=== PATIENT | male | born 1950 | race African-American/Black ===

== ENCOUNTER 2019-07-27 22:44 | Emergency (ER) | payer OTHER, MEDICARE ==
[~2019-07-27] VITALS: Ht 180.3 cm; Wt 78.5 kg
[~2019-07-27 22:44] MED LIST: AMLO5TAB10 PO; SITA1TAB7 PO; VALS1TAB22 PO
[2019-07-27] MEDS ORDERED: methylPREDNISolone SOD SUCC PF 125 MG/2 ML VIAL. IV ONE (23:00)
[2019-07-27] MEDS ORDERED: IPRATRPIUM/ALBUTEROL 0.5/2.5MG 3 ML NEBU. NEB ONE (23:00)
[2019-07-27 23:04] LABS: BASO # 0.1 x10^3/uL (0.0-0.2); BASO % 1 % (0-3); EOS # 0.1 x10^3/uL (0.0-0.7); EOS % 1 % (0-3); HEMATOCRIT 43.5 % (39.0-53.0); HEMOGLOBIN 14.4 g/dL (13.0-17.5); LYMPH % 17 % (24-48); MEAN CORPUSCULAR HEMOGLOBIN 27 pg (25-35); MEAN CORPUSCULAR HGB CONC 33 g/dL (31-37); MEAN CORPUSCULAR VOLUME 81 fL (79-100); MONO # 1.1 x10^3/uL (0.0-1.1); MONO % 9 % (0-9); NEUT # 8.5 x10^3/uL (1.8-7.7); NEUT % 72 % (31-73); PLATELET COUNT 196 x10^3/uL (140-400); RED BLOOD COUNT 5.36 x10^6/uL (4.30-5.70); RED CELL DISTRIBUTION WIDTH 15.9 % (11.5-14.5); WHITE BLOOD COUNT 11.7 x10^3/uL (4.0-11.0)
--- NOTE | 2019-07-27 23:05 | PHYS DOC ---
Past Medical History Past Medical History: Diabetes-Type II, Hypertension, Stroke Past Surgical History: No Surgical History Alcohol Use: None Drug Use: None Adult General Chief Complaint Chief Complaint: SHORTNESS OF BREATH HPI HPI 69-year-old male with a family history of COPD presents to the emergency Department with complaints of shortness of breath. 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 Nose worsening shortness of breath as discussed above. He denies any nausea, vomiting, fever. Cough is present however nonproductive. Initial [facility] emergency department revealed saturations 80s on room air. Patient is only on Spiriva. Patient denies any abdominal discomfort, headache, neck pain or visual changes. Exertion, talking makes his shortness of breath worse. He makes his shortness of breath better. Review of Systems Review of Systems Constitutional: Denies fever or chills [] Respiratory: Nonproductive cough, shortness of breath Cardiovascular: No additional information not addressed in HPI [] GI: Denies abdominal pain, nausea, vomiting, bloody stools or diarrhea [] Musculoskeletal: Denies back pain or joint pain [] Integument: Denies rash or skin lesions [] Neurologic: Denies headache, focal weakness or sensory changes [] All other systems were reviewed and found to be within normal limits, except as documented in this note. Current Medications Current Medications Current Medications Medications (Trade) Dose Ordered Sig/Katie Start Time Stop Time Status Last Admin Dose Admin Albuterol/ Ipratropium (Duoneb) 3 ml 1X ONCE 07/27/19 23:00 07/27/19 23:01 DC 07/27/19 23:02 3 ML Methylprednisolone Sodium Succinate (SOLU-Medrol 125MG VIAL) 125 mg 1X ONCE 07/27/19 23:00 07/27/19 23:01 DC 07/27/19 23:20 125 MG Allergies Allergies Allergies Coded Allergies Type Severity Reaction Last Updated Verified No Known Drug Allergies 06/15/17 No Physical Exam Physical Exam Constitutional: Well developed, well nourished, mild distress secondary to shortness of breath, non-toxic appearance. [] HENT: Normocephalic, atraumatic, bilateral external ears normal, oropharynx moist, no oral exudates, nose normal. [] Eyes: PERRLA, EOMI, conjunctiva normal, no discharge. [] Neck: No stridor Cardiovascular:Heart rate regular rhythm, no murmur [] Lungs & Thorax: Decreased air movement, expiratory wheeze appreciated Abdomen: Bowel sounds normal, soft, no tenderness, no masses, no pulsatile masses. [] Skin: Warm, dry, no erythema, no rash. [] Extremities: No tenderness, no cyanosis, no edema. [] Neurologic: Alert and oriented X 3, no focal deficits noted. [] Psychologic: Affect normal, judgement normal, mood normal. [] Current Patient Data Vital Signs Vital Signs Date Time Temp Pulse Resp B/P (MAP) Pulse Ox O2 Delivery O2 Flow Rate FiO2 07/27/19 23:03 99 Nasal Cannula 3.0 07/27/19 22:45 97.5 101 26 201/117 (145) 97.5 Lab Values Laboratory Tests Test 07/27/19 22:55 White Blood Count 11.7 x10^3/uL (4.0-11.0) H Red Blood Count 5.36 x10^6/uL (4.30-5.70) Hemoglobin 14.4 g/dL (13.0-17.5) Hematocrit 43.5 % (39.0-53.0) Mean Corpuscular Volume 81 fL (79-100) Mean Corpuscular Hemoglobin 27 pg (25-35) Mean Corpuscular Hemoglobin Concent 33 g/dL (31-37) Red Cell Distribution Width 15.9 % (11.5-14.5) H Platelet Count 196 x10^3/uL (140-400) Neutrophils (%) (Auto) 72 % (31-73) Lymphocytes (%) (Auto) 17 % (24-48) L Monocytes (%) (Auto) 9 % (0-9) Eosinophils (%) (Auto) 1 % (0-3) Basophils (%) (Auto) 1 % (0-3) Neutrophils # (Auto) 8.5 x10^3/uL (1.8-7.7) H Lymphocytes # (Auto) 2.0 x10^3/uL (1.0-4.8) Monocytes # (Auto) 1.1 x10^3/uL (0.0-1.1) Eosinophils # (Auto) 0.1 x10^3/uL (0.0-0.7) Basophils # (Auto) 0.1 x10^3/uL (0.0-0.2) D-Dimer (Evelyn) 0.33 ug/mlFEU (0.00-0.50) Sodium Level 141 mmol/L (136-145) Potassium Level 3.9 mmol/L (3.5-5.1) Chloride Level 100 mmol/L (98-107) Carbon Dioxide Level 31 mmol/L (21-32) Anion Gap 10 (6-14) Blood Urea Nitrogen 16 mg/dL (8-26) Creatinine 0.9 mg/dL (0.7-1.3) Estimated GFR (Cockcroft-Gault) 101.2 BUN/Creatinine Ratio 18 (6-20) Glucose Level 113 mg/dL (70-99) H Calcium Level 9.8 mg/dL (8.5-10.1) Total Bilirubin 0.3 mg/dL (0.2-1.0) Aspartate Amino Transferase (AST) 13 U/L (15-37) L Alanine Aminotransferase (ALT) 11 U/L (16-63) L Alkaline Phosphatase 103 U/L (46-116) Troponin I Quantitative < 0.017 ng/mL (0.000-0.055) CB-Svy-G-Type Natriuretic Peptide 56 pg/mL (0-124) Total Protein 8.9 g/dL (6.4-8.2) H Albumin 4.2 g/dL (3.4-5.0) Albumin/Globulin Ratio 0.9 (1.0-1.7) L Laboratory Tests 07/27/19 22:55 Laboratory Tests 07/27/19 22:55 EKG EKG EKG reviewed, heart rate 97, irregular rhythm. There are P waves present. No evidence of acute ST elevation.[] Interpretation Time: Interpretation time 2304 Radiology/Procedures Radiology/Procedures [facility] [address] [place] [address] IMAGING REPORT Signed PATIENT: APOLINAR AVILEZ ACCOUNT: [id number] : 1950 LOCATION: ER AGE: 69 SEX: M EXAM STATUS: REG ER ORD. PHYSICIAN: LARS VICTOR MD REASON: Shortness of breath PROCEDURE: PORTABLE CHEST 1V Indication:Shortness of breath. TECHNIQUE:Portable AP chest X-ray COMPARISON: Study from 06/15/2017 FINDINGS: Heart is normal in size. Mild prominence of interstitium also seen on previous exam. No lung consolidation. No pneumothorax or pleural effusion. Visualized bony thorax within normal limits. IMPRESSION: Stable prominence of interstitium when compared to previous exam from 2017. Superimposed atypical/viral infection not ruled out. Electronically signed by: Austin Shah DO (07/27/2019 11:24 PM) [facility] DICTATED and SIGNED BY: AUSTIN SHAH DO DATE: 07/27/19 8450 [] Course & Med Decision Making Course & Med Decision Making Pertinent Labs and Imaging studies reviewed. (See chart for details) []69-year-old male with a family history of COPD presents to the emergency Department with complaints of shortness of breath. 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 Nose worsening shortness of breath as discussed above. He denies any nausea, vomiting, fever. Cough is present however nonproductive. Initial evaluation emergency department revealed saturations 80s on room air. Patient is only on Spiriva. Patient denies any abdominal discomfort, headache, neck pain or visual changes. Exertion, talking makes his shortness of breath worse. He makes his shortness of breath better. Labs and imaging reviewed, white blood cell count 11.7. Chest x-ray reveals no evidence of acute cardio/pulmonary process, no acute consolidation appreciated on x-ray. He does have mild elevation of the d-dimer however within age-adjusted limits. Troponin within normal limits. BNP normal. Patient is currently on room air, saturations 95-97%. Patient would like to be discharged, will plan for ambulatory oximetry, his saturations remained stable, no significant shortness of breath will plan for discharge. Recommend continued Spiriva as scheduled, will add rescue inhaler. Ambulatory oximetry 92% Dragon Disclaimer Dragon Disclaimer This electronic medical record was generated, in whole or in part, using a voice recognition dictation system. Departure Departure Impression: Primary Impression: COPD exacerbation Additional Impression: Hypoxia Disposition: 01 HOME, SELF-CARE Condition: IMPROVED Referrals: ALEX LUCERO MD (PCP) Patient Instructions: Chronic Obstructive Pulmonary Disease Exacerbation, [id number] Additional Instructions: Recommend follow up with PCP 3 - 5 days Return to the ER with worsening symptoms, intractable pain, fever, altered mental status Tylenol/Motrin as needed for pain Take abx as directed Rescue inhaler rx provided. Scripts Methylprednisolone (MEDROL) 4 Mg Tab.ds.pk 1 PKG PO UD for inflammation, #1 PKG Prov: LARS VICTOR MD 07/28/19 Albuterol Sulfate (VENTOLIN HFA INHALER) 18 Gm Hfa.aer.ad 2 PUFF INH Q4HRS for FOR ASTHMA, #1 INHALER 2 Refills Prov: LARS VICTOR MD 07/28/19 Levofloxacin (LEVAQUIN) 750 Mg Tablet 1 TAB PO DAILY, #7 TAB Prov: LARS VICTOR MD 07/28/19 Problem Qualifiers LARS VICTOR MD Jul 27, 2019 23:05
[2019-07-27 23:13] LABS: CALCIUM 9.8 mg/dL (8.5-10.1); CREATININE 0.9 mg/dL (0.7-1.3); GFR 101.2; POTASSIUM 3.9 mmol/L (3.5-5.1)
[2019-07-27 23:19] LABS: ALBUMIN 4.2 g/dL (3.4-5.0); ALBUMIN/GLOBULIN RATIO 0.9 (1.0-1.7); TOTAL BILIRUBIN 0.3 mg/dL (0.2-1.0); TOTAL PROTEIN 8.9 g/dL (6.4-8.2)
--- NOTE | 2019-07-27 23:27 | RAD ---
Indication:Shortness of breath. TECHNIQUE:Portable AP chest X-ray COMPARISON: Study from 06/15/2017 FINDINGS: Heart is normal in size. Mild prominence of interstitium also seen on previous exam. No lung consolidation. No pneumothorax or pleural effusion. Visualized bony thorax within normal limits. IMPRESSION: Stable prominence of interstitium when compared to previous exam from 2017. Superimposed atypical/viral infection not ruled out. Electronically signed by: Austin Shah DO (07/27/2019 11:24 PM) [facility]
[2019-07-28 00:30] VITALS: BP 174/91
[2019-07-28] MEDS ORDERED: LEVO750T31 PO (00:57)
[2019-07-28] MEDS ORDERED: VENTOLIN HFA18 GM INH (00:57)
[2019-07-28] MEDS ORDERED: METH4TAB2 PO (00:58)
--- NOTE | 2019-07-28 07:37 | EKG ---
[facility] [address] [place] [address] Test Date: 2019-07-27 Test Time: 22:58:27 Pat Name: APOLINAR AVILEZ Department: Room: Gender: M Announcer: : 1950 Requested By: LARS VICTOR Order Number: [id number] Reading MD: Measurements Intervals [place] Rate: 97 P: [place]: QRS: 23 QRSD: 70 T: 74 QT: 348 QTc: 446 Interpretive Statements IRREGULAR RHYTHM, NO P-WAVE FOUND T ABNORMALITY IN HIGH LATERAL LEADS ABNORMAL ECG RI6.01 No previous ECG available for comparison
== END 2019-07-28 01:05 | disposition home or self-care (01) ==
LOC: ER 22:44
DX: J44.1 Chronic obstructive pulmonary disease with (acute) exacerbation (principal); R09.02 Hypoxemia; I10 Essential (primary) hypertension; E11.9 Type 2 diabetes mellitus without complications; Z86.73 Personal history of transient ischemic attack (TIA), and cerebral infarction without residual deficits
CPT/HCPCS: 71045; 80053; 83880; 84484; 85025; 85379; 93005; 94640; 96374; 99285; J2930; J7620

== ENCOUNTER → 2019-08-28 | Outpatient (CLI) | payer OTHER, MEDICARE ==
[~2019-08-28] MED LIST changes: +LEVO750T31 PO; +METH4TAB2 PO; +REGADENOSON 0.4 MG/5 ML DISP.SYRIN. IV ONE; +VENTOLIN HFA18 GM INH
--- NOTE | 2019-08-28 10:06 | CARD ---
MR#: [id number] Date of Study: 08/28/2019 Ordering Physician: BELKIS GUERRERO, Referring Physician: BELKIS GUERRERO Tech: Shirlene Cesar RDCS APPROVED REPORT EXAM: Two-dimensional and M-mode echocardiogram with Doppler and color Doppler. Other Information Quality : AverageHR: 80bpm Rhythm : Other INDICATION Chest Pain 2D DIMENSIONS RVDd3.0 (2.9-3.5cm)Left Atrium(2D)3.7 (1.6-4.0cm) IVSd1.1 (0.7-1.1cm)Aortic Root(2D)3.1 (2.0-3.7cm) LVDd4.9 (3.9-5.9cm)LVOT Diameter1.8 (1.8-2.4cm) PWd1.1 (0.7-1.1cm)IVSs1.5 (0.8-1.2cm) LVDs2.7 (2.5-4.0cm)FS (%) 44.3 % PWs1.7 (0.8-1.2cm)SV85.9 ml LVEF(%)70.0 (>50%) M-Mode DIMENSIONS Left Atrium(MM)3.20 (2.5-4.0cm)Aortic Root3.10 (2.2-3.7cm) Aortic Valve AoV Peak Ashish.114.3cm/sAoV VTI23.0cm AO Peak GR.5.2mmHgLVOT Peak Ashish.87.0cm/s LVOT VTI 17.51cmAO Mean GR.3mmHg SHANE (VMAX)1.39xf0DUE (VTI)1.99cm2 Mitral Valve MV E Tzojyjfm14.4cm/sMV DECEL [id number] MV A Wwmicihg71.3cm/sMV FZG06dc E/A Ratio0.7MVA (PHT)2.93cm2 TDI E/Medial E'7.9 Pulmonary Valve PV Peak Cjjbmrfo97.6cm/sPV Peak Grad.2mmHg LEFT VENTRICLE The left ventricle is normal size. There is mild concentric left ventricular hypertrophy. The left ve ntricular systolic function is normal. The Ejection Fraction is 60-65%. There is normal LV segmental wall motion. Transmitral Doppler flow pattern is Grade I-abnormal relaxation pattern. RIGHT VENTRICLE The right ventricle is normal size. There is normal right ventricular wall thickness. The right ventr icular systolic function is normal. ATRIA The left atrium size is normal. The right atrium size is normal. The interatrial septum is intact wit h no evidence for an atrial septal defect or patent foramen ovale as noted on 2-D or Doppler imaging. AORTIC VALVE The aortic valve is mildly calcified. The aortic valve is trileaflet. Doppler and Color Flow revealed no significant aortic regurgitation. There is no significant aortic valvular stenosis. MITRAL VALVE The mitral valve is normal in structure and function. There is no evidence of mitral valve prolapse. There is no mitral valve stenosis. Doppler and Color-flow revealed trace mitral regurgitation. TRICUSPID VALVE The tricuspid valve is normal in structure and function. Doppler and Color Flow revealed no tricuspid valve regurgitation noted. There is no tricuspid valve prolapse or vegetation. There is no tricuspid valve stenosis. PULMONIC VALVE The pulmonic valve is not well visualized. GREAT VESSELS The aortic root is normal in size. The ascending aorta is normal in size. The IVC is normal in size a nd collapses >50% with inspiration. PERICARDIAL EFFUSION There is no evidence of significant pericardial effusion. Critical Notification Critical Value: No <Conclusion> The left ventricular systolic function is normal. The Ejection Fraction is 60-65%. There is normal LV segmental wall motion. Transmitral Doppler flow pattern is Grade I-abnormal relaxation pattern. Doppler and Color-flow revealed trace mitral regurgitation. There is no evidence of significant pericardial effusion. Signed by : Belkis Guerrero, Electronically Approved : 08/28/2019 10:05:46
--- NOTE | 2019-08-28 13:34 | RAD ---
MR#: [id number] Date of Study: 08/28/2019 Ordering Physician: BELKIS LÓPEZ, Referring Physician: CAYLA CARUSO Tech: MARCI Miguel APPROVED REPORT Test Type: Pharmacological Stress Nurse/Tech: Ana Green R.N. Test Indications: chest pain, dyspnea on exertion Cardiac History: htn, copd, family hx, smoker, dm Medications: see ehr Medical History: see ehr Resting ECG: sr Resting Heart Rate: 68 bpm Resting Blood Pressure: 120/75mmHg Pretest Chest Pain: No chest pain Nurse/Tech Notes lungs cta, but diminished, heart tones regular Consent: The procedure was explained to the patient in lay terms. Informed consent was witnessed. Hao eout was entered into [employer]. History and Stress Test performed by ADOLFO Manzo, ALO (R) (N) Pharm. Details Pharmacologic stress testing was performed using 0.4mg per 5ml of regadenoson given intravenously ove r 7-10 seconds. Stress Symptoms No chest pain or symptoms. stomach upset POST EXERCISE Reason for Termination: Infusion complete Target HR: No Max HR: 105 bpm Max Blood Pressure: 127/75mmHg Chest Pain: No. Arrhythmia: Yes. SR with PACs noted throughout recovery ST Change: No. INTERPRETATION Stress EKG Conclusion: Baseline EKG showed sinus rhythm. No ischemic changes at peak stress. No arr hythmias. Imaging Protocol IMAGE PROTOCOL: Rest Tc-99m/stress Tc-99m 1 day Rest: Stress: Viability: Radiopharm.Tc99m UpeprriewSy91s Sestamibi Dose10.5mCi 33mCi Duration 15min. 13min. Img Date 08/28/2019 08/28/2019 Inj-Img Fvoq31qtj. 60min. Rest Admin Site:IV - Right AntecubitalAdministrator:ADOLFO Manzo, ARRT (R)(N) Stress Admin Site: IV - Right AntecubitalAdministrator: ADOLFO Manzo, JAZZYT (R)(N) STRESS DATA End Diast. Vol.103.0mlLVEDV index BSA53.0ml End Syst. Vol.43.0mlLVESV index BSA22.0ml Myocardial Tjgx691.0gEject. Lmsqefxm57.0% Stress Scores Regional WT1.00Summed WT6.00 Regional WM0.00Summed WM1.00 LV Perfusion Scintigraphic images showed fixed inferior wall defect most probably diaphragmatic attenuation artifa ct based on normal wall motion. No other fixed or reversible defects were seen. Wall Motion Normal left ventricle systolic function with ejection fraction calculated at 58%. LV Perf. Quant 17 Seg. SSS1.00 17 Seg. SRS4.00 17 Seg. SDS0.00 Stress Defect Extent (% LAD)0.00Rest Defect Extent (% LAD)0.00Rev. Defect Extent (% LAD)0.00 Stress Defect Extent (% LCX) 0.00Rest Defect Extent (% LCX)5.00Rev. Defect Extent (% LCX)0.00 Stress Defect Extent (% RCA)0.00Rest Defect Extent (% RCA)22.20Rev. Defect Extent (% RCA)0.00 Stress Defect Extent (% DEE)1.30Rest Defect Extent (% DEE)9.30Rev. Defect Extent (% DEE)0.00 Conclusion 1. Regadenoson cardioisotope stress test showed diaphragmatic attenuation artifact without any eviden ce of ischemia or infarct. 2. Normal left ventricular systolic function with ejection fraction calculated at 58%. 3. Low risk for cardiac events. Signed by : Belkis López, Electronically Approved : 08/28/2019 13:34:35
--- NOTE | 2019-08-31 10:13 | RAD ---
MR#: [id number] Date of Study: 08/28/2019 Ordering Physician: BELKIS LÓPEZ, Referring Physician: BELKIS LÓPEZ, Tech: Debbie Jones RDMS, RVT APPROVED REPORT Patient Location: OUT-PATIENT Indications Claudication:Bilaterally Risk Factors Smoking VELOCITY AND DOPPLER WAVEFORM ANALYSIS RIGHT cm/secWaveformSeverity LEFT cm/secWaveform Severity pCFA 80.3TriphasicpCFA 75.6Triphasic Prof Fem Art. 68.0BiphasicProf Fem Art. 92.6Biphasic Fem Art Prox. 104.9TriphasicFem Art Prox. 85.7Biphasic Fem Art Mid. 94.2BiphasicFem Art Mid. 94.6Biphasic Fem Art Dist. 118.0TriphasicFem Art Dist. 178.8Triphasic Pop Art(AK) Pop Art(AK) 56.0Biphasic Pop Art(Fossa) 51.9BiphasicPop Art(AK) 45.5Monophasic PERSONAL PROPERTY APPRAISER Mid.54.7MonophasicPTA Mid.88.0Biphasic PERSONAL PROPERTY APPRAISER Dist. 47.0BiphasicPTA Dist. 46.0Monophasic Per Art Mid. 84.3BiphasicPer Art Mid. 0.0 MANSI Prox. 95.0BiphasicATA Prox. 0.0 DPA 68BiphasicDPA 0 Findings Grayscale images of the bilateral lower extremity arterial vessels are notable for diffuse plaque. On the right side there are mostly triphasic and biphasic waveforms from the common femoral to the po pliteal segment. There is three-vessel runoff below the knee. On the left side there are mostly triphasic and biphasic waveforms with likely a greater than 50% jj nosis involving the distal SFA and popliteal segment. The posterior tibial artery appears to be paten t the peroneal artery in the anterior tibial vessels are not adequately visualized. This suggests eit her occlusion or inadequate Doppler signal. Critical Notification Critical Value: No <Conclusion> 1. No critical right lower extremity arterial disease 2. Probable greater than 50% stenosis involving the mid to distal SFA with likely occlusion of the pe roneal and anterior tibial vessels on the left side. Signed by : Phil Walters, Electronically Approved : 08/31/2019 10:13:31
== END | disposition home or self-care (01) ==
LOC: NM 13:13
PROVIDERS: ATTEND Internal Medicine Cardiovascular Disease
DX: I70.293 Other atherosclerosis of native arteries of extremities, bilateral legs (principal); I70.0 Atherosclerosis of aorta
CPT/HCPCS: 78452; 93017; 93306; 93925; A9500; J2785

== ENCOUNTER 2020-05-19 06:20 | Emergency (ER) | payer OTHER, MEDICARE ==
[~2020-05-19] VITALS: Ht 177.8 cm; Wt 80.0 kg
[~2020-05-19 06:20] MED LIST changes: -REGADENOSON 0.4 MG/5 ML DISP.SYRIN. IV ONE
[2020-05-19] MEDS ORDERED: ONDANSETRON ODT 4 MG TAB.RAPDIS. PO ONE (07:00)
[2020-05-19] MEDS ORDERED: HYDROcodone/APAP 5/325MG 1 TAB TABLET PO ONE (07:00)
--- NOTE | 2020-05-19 07:12 | PHYS DOC ---
Past Medical History Past Medical History: COPD, Diabetes-Type II, Hypertension, Stroke Past Surgical History: No Surgical History Smoking Status: Current Every Day Smoker Alcohol Use: None Drug Use: None General Adult EDM: Chief Complaint: FLANK PAIN HPI: HPI: Patient is a 70 year old male who presents with back pain. Right side started 2 weeks ago when he was sanding his deck on something pop pain increasing got some pain medication from his primary doctor he thinks it was Advil actually not helping no no numbness no tingling no abdominal pain no vomiting is been there for 2 weeks hurts more when he twists or touches it no other symptoms no vomiting no weakness no urinary symptoms takes medication for high blood pressure no blood thinners. No known drug allergies review of systems otherwise negative except as noted in HPI. Review of Systems: Review of Systems: Constitutional: Denies fever or chills. [] Eyes: Denies change in visual acuity. [] Musculoskeletal: Integument: Denies rash. [] Neurologic: Denies headache, focal weakness or sensory changes. [] Heart Score: Risk Factors: Risk Factors: DM, Current or recent (<one month) smoker, HTN, HLP, family history of CAD, obesity. Risk Scores: Score 0 - 3: 2.5% MACE over next 6 weeks - Discharge Home Score 4 - 6: 20.3% MACE over next 6 weeks - Admit for Clinical Observation Score 7 - 10: 72.7% MACE over next 6 weeks - Early Invasive Strategies Current Medications: Current Medications Medications (Trade) Dose Ordered Sig/[facility] Start Time Stop Time Status Last Admin Dose Admin Acetaminophen/ Hydrocodone Bitart (Lortab 5/325) 2 tab 1X ONCE 05/19/20 07:00 05/19/20 07:01 DC 05/19/20 06:56 2 TAB Ondansetron HCl (Zofran Odt) 4 mg 1X ONCE 05/19/20 07:00 05/19/20 07:01 DC 05/19/20 06:55 4 MG Allergies: Allergies: Allergies Coded Allergies Type Severity Reaction Last Updated Verified No Known Drug Allergies 06/15/17 No Physical Exam: PE: Constitutional: Well developed, well nourished, mild distress. HENT: Normocephalic, atraumatic, bilateral external ears normal, oropharynx moist, no oral exudates, nose normal. [] Eyes: PERRLA, EOMI, conjunctiva normal, no discharge. [] Neck: Normal range of motion, no tenderness, supple, no stridor. [] Pulmonary: Normal respiratory effort no increased work of breathing no obvious chest wall trauma Abdomen: Bowel sounds normal, soft, no tenderness, no masses, no pulsatile mas ses. [] Skin: Warm, dry, no erythema, no rash. [] Back: Tender to percussion right paraspinous no focal midline tenderness Extremities: No tenderness, no cyanosis, no clubbing, ROM intact, no edema. [] Neurologic: Alert and oriented X 3, normal motor function, normal sensory function, no focal deficits noted. [] Psychologic: Affect normal, judgement normal, mood normal. [] Current Patient Data: Vital Signs: Vital Signs Date Time Temp Pulse Resp B/P (MAP) Pulse Ox O2 Delivery O2 Flow Rate FiO2 05/19/20 06:56 20 99 05/19/20 06:35 97.9 120 157/83 (107) Room Air 97.9 EKG: EKG: [] Radiology/Procedures: Radiology/Procedures: [] Impression: FINDINGS: No compression fracture or discitis or lytic process is evident. Minimal grade 1 anterolisthesis of L4-5 is seen. There is degenerative disc space narrowing and endplate spurring from L3-4 down through L5-S1 which is moderate in nature. The transverse processes are intact. 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 IMPRESSION: Moderate degenerative lumbar spondylosis. No acute compression fracture. Electronically signed by: Gary Baldwin MD (05/19/2020 7:23 AM) [id number] DICTATED and SIGNED BY: GARY BALDWIN MD DATE: 05/19/20 0723 Course & Med Decision Making: Course & Med Decision Making Pertinent Labs and Imaging studies reviewed. (See chart for details) [] 70-year-old male with back pain for 2 weeks blood pressure is elevated likely related to pain and she he tells me he did not take his blood pressure medication today. X-ray shows arthritis give prescription for Elmo give him a dose of that with some Toradol in the emergency room and he felt somewhat better. There is definitely a musculoskeletal reproducible component with positioning in the emergency room. Bedside ultrasound showed no hydronephrosis UA was essentially negative normal aorta seen on bedside ultrasound as well very low pretest probability for that disease process given how long the symptoms have been going on in the reproducible nature. Dragon Disclaimer: Dragon Disclaimer: This electronic medical record was generated, in whole or in part, using a voice recognition dictation system. Departure Departure Impression: Primary Impression: Back pain Disposition: 01 HOME, SELF-CARE Condition: STABLE Referrals: ALEX LUCERO MD (PCP) Scripts Hydrocodone/Apap 5-325 (NORCO 5-325 TABLET) 1 Each Tablet 1-2 EACH PO PRN Q6HRS PRN for PAIN, #8 as needed for pain Prov: ROSE QUIÑONES MD 05/19/20 Justicifation of Admission Dx: Justifications for Admission: Justification of Admission Dx: N/A ROSE QUIÑONES MD May 19, 2020 07:12
[2020-05-19] MEDS ORDERED: HYDR-3164 PO (07:18)
--- NOTE | 2020-05-19 07:26 | RAD ---
Three-view lumbar spine series Clinical indications: Atraumatic back pain. FINDINGS: No compression fracture or discitis or lytic process is evident. Minimal grade 1 anterolisthesis of L4-5 is seen. There is degenerative disc space narrowing and endplate spurring from L3-4 down through L5-S1 which is moderate in nature. The transverse processes are intact. 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 IMPRESSION: Moderate degenerative lumbar spondylosis. No acute compression fracture. Electronically signed by: Ziggy Baldwin MD (05/19/2020 7:23 AM) [id number]
[2020-05-19] MEDS ORDERED: KETOROLAC 30 MG/ML VIAL. IM ONE (07:30)
[2020-05-19 08:28] LABS: BILIRUBIN,URINE NEGATIVE (NEG); CLARITY,URINE CLEAR; COLOR,URINE YELLOW; NITRITE,URINE NEGATIVE (NEG); PROTEIN,URINE NEGATIVE (NEG-TRACE)
[2020-05-19 08:47] LABS: RBC,URINE 0 /HPF (0-2)
[2020-05-19 08:48] LABS: BACTERIA,URINE 0 /HPF (0-FEW); SQUAMOUS EPITHELIAL CELL,UR MOD /LPF
[2020-05-19 08:57] VITALS: BP 140/81
== END 2020-05-19 09:00 | disposition home or self-care (01) ==
LOC: ER 06:20
DX: M54.5 Low back pain (principal); M47.816 Spondylosis without myelopathy or radiculopathy, lumbar region; J44.9 Chronic obstructive pulmonary disease, unspecified; E11.9 Type 2 diabetes mellitus without complications; I10 Essential (primary) hypertension; F17.200 Nicotine dependence, unspecified, uncomplicated; Z86.73 Personal history of transient ischemic attack (TIA), and cerebral infarction without residual deficits
CPT/HCPCS: 72100; 81001; 96372; 99285; J1885

== ENCOUNTER → 2021-09-13 | Outpatient (CLI) | payer MEDICARE ==
[~2021-09-13] MED LIST changes: +AMLO-186 PO; -AMLO5TAB10 PO; +HYDR-3164 PO; -VALS1TAB22 PO; +VALS1TAB23 PO
--- NOTE | 2021-09-13 17:13 | RAD ---
EXAM: CT LOW-DOSE LUNG SCREENING CLINICAL HISTORY: Reason: SMOKER / Spl. Instructions: 40 years+ 1 ppd, no family hx / History: COMPARISON: 06/15/2017 TECHNIQUE: Noncontrast helical low-dose CT chest per standard departmental protocol. PQRS compliance statement - One or more of the following individualized dose reduction techniques wer e utilized for this study: 1. Automated exposure control 2. Adjustment of the mA and/or kV according to patient size 3. Use of iterative reconstruction technique FINDINGS: Lung screening specific (LUNG-RADS): Right apical nodular opacity measuring approximately 8 x 8 mm (s eries 2 image 50) this is slightly more prominent on this examination compared to 06/15/2017. 5 mm rig ht lower lobe lung nodule is stable (image 216, series 2). 1.2 x 1 cm spiculated left upper lobe lung nodule (series 2 image 133) is new. 7 mm left upper lobe lung nodule (image 136) is new Emphysematous changes are seen bilaterally. Other incidental findings: Within the constraints of low-dose noncontrast examination, no thoracic ly mphadenopathy although some mildly prominent AP window lymph nodes are seen measuring 8 mm. No pleura l effusion. No pneumothorax. Mild left adrenal thickening. RECOMMENDATIONS/ IMPRESSION: 1. LUNG-RADS category: 4A. Spiculated left upper lobe 1.2 x 1 cm lung nodule is new and 8 mm right ap ical lung nodule is more prominent. Recommend further evaluation with PET/CT or [address] per ACR gu idelines. Additional nodules as above, recommend close attention on follow-up. Electronically signed by: Sarkis Morejon MD (09/13/2021 5:11 PM) [id number]
== END ==
LOC: CT 13:18
PROVIDERS: ATTEND Family Medicine
DX: Z12.2 Encounter for screening for malignant neoplasm of respiratory organs (principal); R91.8 Other nonspecific abnormal finding of lung field; J43.9 Emphysema, unspecified; E27.8 Other specified disorders of adrenal gland; F17.210 Nicotine dependence, cigarettes, uncomplicated
CPT/HCPCS: 71271

== ENCOUNTER → 2022-04-03 | Outpatient (CLI) | payer MEDICARE ==
--- NOTE | 2022-04-03 14:51 | RAD ---
CT THORAX WO History: Pulmonary nodule Comparison: CT chest 09/13/2021, 06/15/2017 Technique: Noncontrast CT of the chest. Findings: Assessment is limited by lack of IV contrast. Cardiovascular: Normal caliber aortic arch. Moderate coronary artery calcification. Normal heart size . Mediastinum and kang: Left lower pretracheal lymph nodes measuring 8 and 9 mm short axis are similar to comparison. The thyroid and esophagus are unremarkable. Airways, lungs and pleura: Moderate emphysematous change. The central airways are patent. There is irregular consolidation of the anterior right upper lobe involving the previously described new spiculated left upper lobe nodule and extending to the pleural surface. This region measures appr oximately 10 x 4 cm. Left upper lobe rounded nodule measuring 7 mm (axial 134) is stable compared to recent comparison however new from 2017. Right upper lobe apex nodule measures 8 mm diameter (axial 5 3) and is confluent with right apical pleural-parenchymal scarring. This appears similar to recent co mparison however enlarged from 2017. Upper abdomen: Limited evaluation of the upper abdomen is unremarkable. Osseous structures and soft tissues: Within normal limits for age. Impression: 1. New irregular consolidative change involving the previously described new spiculated left upper l obe nodule extending to the left upper lobe anterior pleural surface. This may represent extensive gr owth of a malignancy versus superimposed infectious process. PET/CT and/or tissue sampling is recomme nded for further evaluation. 2. Round left upper lobe 7 mm nodule and right upper lobe apical 8 mm nodule both showed no signific ant interval growth however remain concerning for possible slow-growing malignancy. Continued surveil nadja is recommended if not evaluated with PET. 3. Moderate emphysema and coronary artery calcification. ------ Exposure: One or more of the following individualized dose reduction techniques were utilized for thi s examination: 1. Automated exposure control 2. Adjustment of the mA and/or kV according to patient size 3. Use of iterative reconstruction technique. Electronically signed by: Haresh Cummings MD (04/03/2022 2:48 PM) [id number]
== END ==
LOC: CT 11:24
PROVIDERS: ATTEND Family Medicine
DX: R91.8 Other nonspecific abnormal finding of lung field (principal); I25.10 Atherosclerotic heart disease of native coronary artery without angina pectoris; J43.9 Emphysema, unspecified; J98.4 Other disorders of lung
CPT/HCPCS: 71250